=== PATIENT | male | born 1955 | race African-American/Black ===

== ENCOUNTER 2017-09-06 15:24 | Emergency (ER) | payer SELFPAY ==
[~2017-09-06] VITALS: Ht 175.3 cm; Wt 80.0 kg
[2017-09-06] MEDS ORDERED: IBUPROFEN 800MG TABLET PO ONE (16:00)
[2017-09-06 18:28] VITALS: BP 160/98
== END 2017-09-06 18:29 | disposition home or self-care (01) ==
LOC: ER 15:41
DX: S23.9XXA Sprain of unspecified parts of thorax, initial encounter (principal); V49.9XXA Car occupant (driver) (passenger) injured in unspecified traffic accident, initial encounter; Y93.89 Activity, other specified; Y92.89 Other specified places as the place of occurrence of the external cause; Y99.8 Other external cause status
CPT/HCPCS: 71045; 99283; Z7610